=== PATIENT | male | born 1965 | race Caucasian/White ===

== ENCOUNTER → 2017-11-05 | Outpatient (CLI) | payer OTHER, SELFPAY ==
[~2017-11-05] MED LIST: ALBU90OI6 INH; BUSP10 PO; CHOL10002 PO; CITA20 PO; CYCL10 PO; FISH1000 PO; Flonase 0.05% N16 GM; Garlic Oil1000 MG PO; HYDCHL25 PO; LEVSOD125 PO; METF500 PO; METFORMIN; METO50 PO; Maxalt5 MG PO; Sudogest30 MG PO; Veetids 500500 MG PO
[2017-11-05 18:21] LABS: Appearance, Urine Hazy (Clear); Bilirubin, Urine Neg (Neg); Blood, Urine 1+ (Neg); Color, Urine Yellow (P-Yellow); Glucose Qualitative, Urine Neg (Neg); Ketones, Urine Neg (Neg); Leukocyte Esterase, Urine 3+ (Neg); Nitrite, Urine Neg (Neg); Protein, Urine Neg (Neg); Urobilinogen, Urine NORM (Normal)
[2017-11-05 18:31] LABS: Bacteria Many /hpf; Squamous Epithelial Cells Mod /hpf (Few); White Blood Cells, Urine 50-100 /hpf (0-5)
== END ==
LOC: LAB 18:12 → LAB SHORT 18:12
PROVIDERS: Nurse Practitioner Family
DX: N39.0 Urinary tract infection, site not specified (principal)
CPT/HCPCS: 81001; 87077; 87086; 87186

== ENCOUNTER → 2017-11-18 | Outpatient (CLI) | payer OTHER, SELFPAY ==
[2017-11-18 17:42] LABS: Appearance, Urine Clear (Clear); Bilirubin, Urine Neg (Neg); Blood, Urine Neg (Neg); Color, Urine Yellow (P-Yellow); Glucose Qualitative, Urine Neg (Neg); Ketones, Urine Neg (Neg); Leukocyte Esterase, Urine Neg (Neg); Nitrite, Urine Neg (Neg); Protein, Urine Neg (Neg); Urobilinogen, Urine NORM (Normal)
== END | disposition home or self-care (01) ==
LOC: LAB SHORT 17:34 → LAB 17:34
PROVIDERS: Nurse Practitioner Family
DX: N39.0 Urinary tract infection, site not specified (principal)
CPT/HCPCS: 81003

== ENCOUNTER → 2021-10-04 | Outpatient (CLI) | payer OTHER | LOC: LAB 14:15 → LAB SHORT 14:15 | DX: L08.9 Local infection of the skin and subcutaneous tissue, unspecified (principal) | CPT/HCPCS: 87070; 87205 ==

== ENCOUNTER → 2023-01-10 | Outpatient (CLI) | payer OTHER | LOC: LAB SHORT 13:49 → LAB 13:49 | DX: L02.91 Cutaneous abscess, unspecified (principal) | CPT/HCPCS: 87070; 87075; 87077; 87186; 87205 ==

== ENCOUNTER → 2024-10-04 | Outpatient (CLI) | payer OTHER | LOC: LAB SHORT 16:50 → LAB 16:50 | DX: C67.9 Malignant neoplasm of bladder, unspecified (principal) | CPT/HCPCS: 87086 ==